=== PATIENT | male | born 1980 | race Hispanic/Latino ===

== ENCOUNTER 2017-06-04 16:21 | Emergency (ER) | payer SELFPAY ==
--- NOTE | 2017-06-04 17:54 | RAD ---
PA AND LATERAL CHEST: Indication: Chest pain. Comparison: None. IMPRESSION: No focal consolidation, pleural effusion, or pneumothorax is evident. COMMENTS: No acute osseous abnormality is evident. Heart size is within normal limits. POS: [facility]
== END 2017-06-04 19:07 | disposition home or self-care (01) ==
LOC: ERS 16:21
DX: J06.9 Acute upper respiratory infection, unspecified (principal); J30.9 Allergic rhinitis, unspecified
CPT/HCPCS: 71046